=== PATIENT | male | born 1940 | race Caucasian/White ===

== ENCOUNTER 2023-08-07 08:06 | Inpatient (IN) | payer MEDICARE ==
[2023-08-07 09:27] LABS: #Monocytes 0.7 thou/uL (0.11-0.59); #Neutrophils 9.1 thou/uL (1.40-6.50); %Basophils 0.4 % (0.0-1.0); %Eosinophils 0.1 % (0.0-10.0); %Lymphocytes 6.8 % (21.0-51.0); %Monocytes 6.4 % (0.0-10.0); %Neutrophils 85.7 % (42.0-75.0); Hematocrit 39.2 % (42.0-52.0); Hemoglobin 13.1 g/dL (14.0-18.0); Mean Corpuscular HGB CONC 33.4 g/dL (32.0-36.0); Mean Corpuscular Hemoglobin 31.4 pg (27.0-31.0); Mean Platelet Volume 9.9 fL (7.4-10.4); Platelet Count 277 10x3/uL (130-400); RBC Distribution Width 13.7 % (11.5-14.5); Red Blood Cell (RBC) Count 4.17 mill/uL (4.70-6.10); White Blood Cell (WBC) Count 10.6 10x3/uL (4.8-10.8)
[2023-08-07 09:49] LABS: Acetaminophen Less than 10 mcg/mL (10.0-30.0); Alcohol Less than 10.0 mg/dL (Less than 10); Salicylate Less than 8.0 mg/dL (15.0-30.0)
[2023-08-07 09:51] LABS: INR-International Normal Ratio 1.2; Prothrombin Time 15.4 sec (12.0-14.7)
[2023-08-07 09:52] LABS: ALT (SGPT) 15 U/L (8-55); AST (SGOT) 25 U/L (5-34); Albumin 4.1 g/dL (3.4-4.8); Alkaline Phosphatase 74 U/L (40-110); Anion Gap 16 mmol/L (10-20); BUN (Urea Nitrogen) 19 mg/dL (8.4-25.7); Bilirubin, Total 0.7 mg/dL (0.2-1.2); CK (CPK) 683 U/L (30-200); Calc. Creatinine Clearance 0 mL/min (70-130); Calcium 9.5 mg/dL (7.8-10.44); Carbon Dioxide 22 mmol/L (23-31); Chloride 101 mmol/L (98-107); Estimated GFR 54; Globulin 3.2 g/dL (2.4-3.5); Glucose 128 mg/dL (83-110); Potassium 3.8 mmol/L (3.5-5.1); Protein, Total 7.3 g/dL (5.8-8.1); Sodium 135 mmol/L (136-145)
[2023-08-07 09:54] LABS: Troponin I 0.075 ng/mL (< 0.028)
[2023-08-07] MEDS ORDERED: Vancomycin 1 GM/200 ML (FROZEN) BAG ONE (10:32)
[2023-08-07] MEDS ORDERED: Sodium Chloride 0.9% 100 ML ONE (10:32)
[2023-08-07] MEDS ORDERED: Cefepime 2 GM VIAL ONE (10:32)
[2023-08-07] MEDS ORDERED: Aspirin Chewable 81 MG TAB ONE (10:33)
[2023-08-07 11:10] LABS: Amphetamine Not Detected (NotDetected); Barbiturates Screen Not Detected (NotDetected); Benzodiazepine Screen Detected (NotDetected); Cocaine Metabolite Screen Not Detected (NotDetected); Methadone Not Detected (NotDetected); Methamphetamine Not Detected (NotDetected); Opiate Screen Not Detected (NotDetected); Oxycodone Screen Not Detected (NotDetected); Phencyclidine (PCP) Not Detected (NotDetected); THC/Cannabinoid Screen Not Detected (NotDetected); Tricyclic Screen Not Detected (NotDetected)
[2023-08-07 11:19] LABS: Bacteria/HPF None Seen HPF (None Seen); Bilirubin Negative (Negative); Blood, Urine 3+ (Negative); CAUTI Indications for Culture Alt mental st,lethar; Clarity Clear (Clear); Glucose, Urine (Dipstick) Normal (Negative); Ketone, Urine 40 mg/dL (Negative); Leukocyte Negative Leu/uL (Negative); Nitrite Negative (Negative); Protein, Urine (Dipstick) 100 mg/dL (Neg-Trace); RBC/HPF 0-3 HPF (0-3); Specific Gravity, Urine 1.029 (1.002-1.036); Squamous Epithelial 0-3 HPF (0-3); Urobilinogen Normal mg/dL (Less than 2)
[2023-08-07 11:22] LABS: Urine Culture Reflex No No
[2023-08-07 12:30] LABS: SARS-CoV-2 NAA Rapid Test Not Detected (NotDetected)
[2023-08-07] MEDS ORDERED: Ondansetron PF 4 MG/2 ML Vial IVP PRN (13:27)
[2023-08-07 13:37] LABS: Troponin I 0.087 ng/mL (< 0.028)
[2023-08-07] MEDS ORDERED: Labetalol HCl 100 MG/20 ML VIAL ONE (14:07)
[2023-08-07] MEDS: Sodium Chloride 0.9% 1,000 ML IV SCH (15:09)
[2023-08-07] MEDS: Carbidopa/Levodopa 25-100 mg Tablet PO SCH ×2 (15:15→20:56)
[2023-08-07 16:51] LABS: Magnesium 1.8 mg/dL (1.6-2.6)
[2023-08-07] MEDS ORDERED: Cephalexin 250 MG CAP PO SCH (18:00)
[2023-08-07] MEDS: Metoprolol Tartrate 25 MG TAB PO SCH (20:56)
[2023-08-07] MEDS: Doxycycline 100 MG CAP PO SCH (20:56)
[2023-08-07] MEDS: Acetaminophen 325 MG TAB PO PRN (20:56)
[2023-08-08] MEDS: Sodium Chloride 0.9% 1,000 ML IV SCH ×2 (05:25→10:50)
[2023-08-08 05:30] VITALS: BMI 29.0
[2023-08-08 05:37] LABS: Troponin I 0.093 ng/mL (< 0.028)
[2023-08-08 05:38] LABS: Anion Gap 16 mmol/L (10-20); BUN (Urea Nitrogen) 22 mg/dL (8.4-25.7); CK (CPK) 2961 U/L (30-200); Calc. Creatinine Clearance 55 mL/min (70-130); Calcium 8.6 mg/dL (7.8-10.44); Carbon Dioxide 19 mmol/L (23-31); Chloride 103 mmol/L (98-107); Estimated GFR 54; Glucose 100 mg/dL (83-110); Sodium 134 mmol/L (136-145)
[2023-08-08] MEDS: Doxycycline 100 MG CAP PO SCH ×2 (08:13→21:49)
[2023-08-08] MEDS: Aspirin 81 mg Enteric Coated Tablet PO SCH (08:13)
[2023-08-08] MEDS: Carbidopa/Levodopa 25-100 mg Tablet PO SCH ×3 (08:13→21:49)
[2023-08-08] MEDS: Amlodipine 5 MG TAB PO SCH (08:13)
[2023-08-08] MEDS: Metoprolol Tartrate 25 MG TAB PO SCH ×2 (08:13→21:50)
[2023-08-08] MEDS: Acetaminophen 325 MG TAB PO PRN ×2 (08:14→17:55)
[2023-08-08] MEDS ORDERED: FLU VACC QS2023(65UP)/MF59C/PF 60 MCG/0.5 ML SYRINGE IM ONE (09:00)
[2023-08-08] MEDS ORDERED: diphenhydrAMINE 25 MG CAP PO PRN (15:45)
[2023-08-08] MEDS: Atorvastatin Calcium 20 MG TAB PO SCH (21:49)
[2023-08-09] MEDS: Sodium Chloride 0.9% 1,000 ML IV SCH ×4 (00:28→14:57)
[2023-08-09 04:22] LABS: #Eosinphils 0.9 thou/uL (0.0-0.7); #Monocytes 0.6 thou/uL (0.11-0.59); %Basophils 0.3 % (0.0-1.0); %Eosinophils 7.6 % (0.0-10.0); %Lymphocytes 15.1 % (21.0-51.0); %Monocytes 5.3 % (0.0-10.0); %Neutrophils 71.1 % (42.0-75.0); Hematocrit 35.7 % (42.0-52.0); Hemoglobin 11.9 g/dL (14.0-18.0); Mean Corpuscular HGB CONC 33.3 g/dL (32.0-36.0); Mean Corpuscular Hemoglobin 31.6 pg (27.0-31.0); Mean Corpuscular Volume 94.9 fl (78.0-98.0); Mean Platelet Volume 10.4 fL (7.4-10.4); Platelet Count 222 10x3/uL (130-400); RBC Distribution Width 13.9 % (11.5-14.5); Red Blood Cell (RBC) Count 3.76 mill/uL (4.70-6.10); White Blood Cell (WBC) Count 11.3 10x3/uL (4.8-10.8)
[2023-08-09 04:51] LABS: Anion Gap 14 mmol/L (10-20); BUN (Urea Nitrogen) 17 mg/dL (8.4-25.7); CK (CPK) 1751 U/L (30-200); Calc. Creatinine Clearance 80 mL/min (70-130); Calcium 8.6 mg/dL (7.8-10.44); Carbon Dioxide 20 mmol/L (23-31); Chloride 103 mmol/L (98-107); Estimated GFR 85; Glucose 81 mg/dL (83-110); Potassium 3.7 mmol/L (3.5-5.1); Sodium 133 mmol/L (136-145)
[2023-08-09] MEDS ORDERED: Lidocaine 2% 20 ml MDV SC SCH (08:00)
[2023-08-09] MEDS: Doxycycline 100 MG CAP PO SCH (08:01)
[2023-08-09] MEDS: Metoprolol Tartrate 25 MG TAB PO SCH ×2 (08:01→21:33)
[2023-08-09] MEDS: Aspirin 81 mg Enteric Coated Tablet PO SCH (08:02)
[2023-08-09] MEDS: Carbidopa/Levodopa 25-100 mg Tablet PO SCH ×3 (08:02→21:33)
[2023-08-09] MEDS: Amlodipine 5 MG TAB PO SCH (08:02)
[2023-08-09] MEDS ORDERED: Lidocaine 2% PF 5 ML VIAL IM SCH (08:30)
[2023-08-09] MEDS: Atorvastatin Calcium 20 MG TAB PO SCH (21:33)
[2023-08-10] MEDS ORDERED: dilTIAZem 25 MG/5 ML VIAL SLOW IVP SCH (04:30)
[2023-08-10] MEDS: Sodium Chloride 0.9% 1,000 ML IV SCH ×2 (04:39→11:53)
[2023-08-10 05:10] LABS: #Eosinphils 0.6 thou/uL (0.0-0.7); #Monocytes 0.6 thou/uL (0.11-0.59); #Neutrophils 6.1 thou/uL (1.40-6.50); %Basophils 0.2 % (0.0-1.0); %Eosinophils 6.6 % (0.0-10.0); %Lymphocytes 18.9 % (21.0-51.0); %Monocytes 6.9 % (0.0-10.0); %Neutrophils 66.7 % (42.0-75.0); Hematocrit 31.3 % (42.0-52.0); Hemoglobin 10.8 g/dL (14.0-18.0); Mean Corpuscular HGB CONC 34.5 g/dL (32.0-36.0); Mean Corpuscular Hemoglobin 31.5 pg (27.0-31.0); Mean Corpuscular Volume 91.3 fl (78.0-98.0); Mean Platelet Volume 10.4 fL (7.4-10.4); Platelet Count 202 10x3/uL (130-400); RBC Distribution Width 13.6 % (11.5-14.5); Red Blood Cell (RBC) Count 3.43 mill/uL (4.70-6.10); White Blood Cell (WBC) Count 9.1 10x3/uL (4.8-10.8)
[2023-08-10 05:58] LABS: Anion Gap 14 mmol/L (10-20); BUN (Urea Nitrogen) 12 mg/dL (8.4-25.7); CK (CPK) 647 U/L (30-200); Calc. Creatinine Clearance 96 mL/min (70-130); Calcium 8.7 mg/dL (7.8-10.44); Carbon Dioxide 18 mmol/L (23-31); Chloride 105 mmol/L (98-107); Estimated GFR 90; Glucose 84 mg/dL (83-110); Potassium 3.4 mmol/L (3.5-5.1); Sodium 134 mmol/L (136-145)
[2023-08-10] MEDS ORDERED: Potassium Bicarbonate/Cit Ac 20 MEQ TAB PO SCH (06:15)
[2023-08-10] MEDS ORDERED: dilTIAZem 125 MG in Sodium Chloride 0.9% 100 ML IVPB SCH (06:15)
[2023-08-10 07:03] LABS: Magnesium 1.7 mg/dL (1.6-2.6)
[2023-08-10] MEDS: Aspirin 81 mg Enteric Coated Tablet PO SCH (08:14)
[2023-08-10] MEDS: Carbidopa/Levodopa 25-100 mg Tablet PO SCH ×3 (08:14→20:23)
[2023-08-10] MEDS: Amlodipine 5 MG TAB PO SCH (08:15)
[2023-08-10] MEDS: Metoprolol Tartrate 25 MG TAB PO SCH ×2 (08:15→20:23)
[2023-08-10] MEDS: Acetaminophen 325 MG TAB PO PRN (08:53)
[2023-08-10] MEDS ORDERED: Amiodarone 450 MG, Admixture Fee 1 EACH in Dextrose 5% in Water 250 ML IVPB SCH (12:45)
[2023-08-10] MEDS ORDERED: Amiodarone 150 MG, Admixture Fee 1 EACH in Dextrose 5% in Water 100 ML IVPB SCH (12:45)
[2023-08-10] MEDS ORDERED: Amiodarone 450 MG in Dextrose 5% in Water 250 ML IVPB SCH (12:45)
[2023-08-10] MEDS ORDERED: Digoxin 0.5 MG/2 ML AMP SLOW IVP SCH (13:00)
[2023-08-10] MEDS ORDERED: Bisacodyl 10 MG SUPP PR PRN (17:00)
[2023-08-10] MEDS ORDERED: Senokot S 8.6-50 MG TAB PO SCH (17:00)
[2023-08-10] MEDS ORDERED: Polyethylene Glycol 3350 17 GM Packet PO SCH (17:00)
[2023-08-10] MEDS ORDERED: Milk Of Magnesia 30 ML UDCUP PO PRN (17:01)
[2023-08-10] MEDS: Atorvastatin Calcium 20 MG TAB PO SCH (20:23)
[2023-08-11 04:50] LABS: Hemoglobin 10.6 g/dL (14.0-18.0); Manual Diff?? YES; Mean Corpuscular HGB CONC 34.2 g/dL (32.0-36.0); Mean Corpuscular Volume 90.6 fl (78.0-98.0); Mean Platelet Volume 10.8 fL (7.4-10.4); Platelet Count 220 10x3/uL (130-400); RBC Distribution Width 13.7 % (11.5-14.5); Red Blood Cell (RBC) Count 3.42 mill/uL (4.70-6.10); White Blood Cell (WBC) Count 9.2 10x3/uL (4.8-10.8)
[2023-08-11 04:58] LABS: Delete Auto Diff?? YES
[2023-08-11 05:20] LABS: Anion Gap 12 mmol/L (10-20); BUN (Urea Nitrogen) 13 mg/dL (8.4-25.7); Calc. Creatinine Clearance 100 mL/min (70-130); Calcium 8.7 mg/dL (7.8-10.44); Carbon Dioxide 22 mmol/L (23-31); Chloride 105 mmol/L (98-107); Estimated GFR 91; Glucose 83 mg/dL (83-110); Potassium 3.5 mmol/L (3.5-5.1); Sodium 135 mmol/L (136-145)
[2023-08-11 05:40] LABS: Band 24 % (5-11); CellaVision Operator ID LAB.CLH1; Eosinophils 10 % (0-10); Hypochromia SLIGHT = 6-15 cells HPF (0-5); Lymphocytes 15 % (21-51); Monocytes 9 % (0-10); Neutrophil 40 % (42-75); Platelet Adequacy Comment Platelets Normal; Polychromasia SLIGHT = 2-3 cells HPF (0-2); Total Cell Count 100
[2023-08-11] MEDS ORDERED: Polyethylene Glycol 3350 17 GM Packet PO SCH (09:00)
[2023-08-11] MEDS ORDERED: Losartan 25 MG TAB PO SCH (09:00)
[2023-08-11] MEDS: Amlodipine 5 MG TAB PO SCH (09:52)
[2023-08-11] MEDS: Aspirin 81 mg Enteric Coated Tablet PO SCH (09:52)
[2023-08-11] MEDS: Carbidopa/Levodopa 25-100 mg Tablet PO SCH ×2 (09:52→14:57)
[2023-08-11 15:48] VITALS: BP 134/63; TEMP 97.5
== END 2023-08-11 17:30 | disposition home or self-care (01) | DRG 56 ==
LOC: ERS 08:06 → ERHOLD 13:18 → 2NO 18:08
PROVIDERS: ADMIT Internal Medicine Critical Care Medicine; ATTEND Internal Medicine
PROC: 0H96XZZ Drainage of Back Skin, External Approach (ICD-10-PCS; principal; 2023-08-09)
DX: G20.A1 Parkinson's disease without dyskinesia, without mention of fluctuations (principal); I21.A1 Myocardial infarction type 2; M62.82 Rhabdomyolysis; L02.212 Cutaneous abscess of back [any part, except buttock and flank]; N17.9 Acute kidney failure, unspecified; F03.90 Unspecified dementia, unspecified severity, without behavioral disturbance, psychotic disturbance, mood disturbance, and anxiety; R29.6 Repeated falls; I49.3 Ventricular premature depolarization; R53.1 Weakness; I44.7 Left bundle-branch block, unspecified; N18.30 Chronic kidney disease, stage 3 unspecified; I12.9 Hypertensive chronic kidney disease with stage 1 through stage 4 chronic kidney disease, or unspecified chronic kidney disease; L27.0 Generalized skin eruption due to drugs and medicaments taken internally; I48.91 Unspecified atrial fibrillation; T36.1X5A Adverse effect of cephalosporins and other beta-lactam antibiotics, initial encounter; K59.00 Constipation, unspecified; Z79.899 Other long term (current) drug therapy; Z88.0 Allergy status to penicillin; Z11.52 Encounter for screening for COVID-19
CPT/HCPCS: 36415; 36416; 70450; 71045; 72125; 80048; 80053; 80306; 80307; 81001; 82550; 83605; 83735; 83880; 84443; 84484; 85025; 85610; 85730; 87040; 93005; 93010; 93306; 96361; 96365; 96366; 96367; 96375; 97139; J0692; J3370-JW; J3490; J7050

== ENCOUNTER 2024-01-24 07:57 | Outpatient (CLI) | payer MEDICARE | END 2024-01-24 07:58 | disposition home or self-care (01) | LOC: BICMRI 07:57 | PROVIDERS: ATTEND Psychiatry & Neurology Neurology | DX: R25.1 Tremor, unspecified (principal); R93.0 Abnormal findings on diagnostic imaging of skull and head, not elsewhere classified | CPT/HCPCS: 70551 ==